=== PATIENT | female | born 1990 | race Caucasian/White ===

== ENCOUNTER 2021-03-29 11:50 | Emergency (ER) | payer OTHER ==
[~2021-03-29] VITALS: Ht 170.2 cm; Wt 127.0 kg
[~2021-03-29 11:50] MED LIST: CEFD300 PO; IBUP800 PO; PROACE100 PO; RXPROACE PO
== END 2021-03-29 12:34 | disposition home or self-care (01) ==
LOC: ER 11:50
DX: S62.522A Displaced fracture of distal phalanx of left thumb, initial encounter for closed fracture (principal); W23.0XXA Caught, crushed, jammed, or pinched between moving objects, initial encounter; Z88.1 Allergy status to other antibiotic agents
CPT/HCPCS: 99283

== ENCOUNTER → 2021-10-15 | Outpatient (CLI) | payer OTHER ==
[2021-10-16 15:10] LABS: HPV 16 Negative (Negative); HPV 18 Negative (Negative); HPV OTHER HR TYPES Negative (Negative)
== END | disposition home or self-care (01) ==
LOC: LAB 14:19 → LAB SHORT 14:19
PROVIDERS: Family Medicine
DX: Z12.4 Encounter for screening for malignant neoplasm of cervix (principal)
CPT/HCPCS: 87624; G0123

== ENCOUNTER → 2023-11-17 | Outpatient (CLI) | payer OTHER ==
[~2023-11-17] MED LIST changes: +PRENATAL TABLE1 EAC2 PO
[2023-11-17 11:42] LABS: BASOPHILS ABSOLUTE AUTO 0.05 K/mm3 (0.00-0.23); BASOPHILS PERCENT AUTO 1 % (0-2); EOSINOPHILS ABSOLUTE AUTO 0.08 K/mm3 (0.00-0.68); EOSINOPHILS PERCENT AUTO 2 % (0-6); Hematocrit 34.4 % (33.0-51.0); Hemoglobin 10.7 g/dL (11.5-16.0); IMMATURE GRAN ABSOLUTE AUTO 0.01 K/mm3 (0.00-0.10); IMMATURE GRAN PERCENT AUTO 0 % (0-1); LYMPHOCYTES PERCENT AUTO 29 % (21-46); MONOCYTES ABSOLUTE AUTO 0.42 K/mm3 (0.16-1.47); MONOCYTES PERCENT AUTO 9 % (4-13); Mean Corpuscular HGB 24.5 pg (26.0-34.0); Mean Corpuscular HGB Conc 31.1 g/dL (31.5-36.5); Mean Corpuscular Volume 79 fL (80-100); Mean Platelet Volume 10.1 fL (9.1-12.4); NEUTROPHILS ABSOLUTE AUTO 2.92 K/mm3 (1.96-9.15); NEUTROPHILS PERCENT AUTO 60 % (41-73); Platelet Count 237 K/mm3 (150-400); RDW Coefficient Variation 16.6 % (11.7-14.2); RDW Standard Deviation 45.8 fL (35.1-46.3); Red Blood Cell Count 4.36 M/mm3 (3.80-5.20); White Blood Cell Count 4.88 K/mm3 (4.00-11.30)
== END ==
LOC: LAB SHORT 11:38 → LAB 11:38
PROVIDERS: Physician Assistant Medical
DX: Z34.91 Encounter for supervision of normal pregnancy, unspecified, first trimester (principal)
CPT/HCPCS: 84702; 85025

== ENCOUNTER 2024-01-01 15:59 | Emergency (ER) | payer OTHER ==
[~2024-01-01] VITALS: Ht 172.7 cm; Wt 113.4 kg
[2024-01-01] MEDS ORDERED: Ibuprofen 400 MG Tab PO ONE (17:05)
[2024-01-01 18:37] VITALS: BP 123/77
== END 2024-01-01 18:38 | disposition home or self-care (01) ==
LOC: ER 15:59
DX: S33.5XXA Sprain of ligaments of lumbar spine, initial encounter (principal); S80.01XA Contusion of right knee, initial encounter; S50.812A Abrasion of left forearm, initial encounter; S20.412A Abrasion of left back wall of thorax, initial encounter; W17.89XA Other fall from one level to another, initial encounter; Z79.899 Other long term (current) drug therapy; Z88.1 Allergy status to other antibiotic agents
CPT/HCPCS: 72100; 73562-RT; 99284-25; A9270

== ENCOUNTER → 2025-01-22 | Outpatient (CLI) | payer OTHER | LOC: LAB 15:29 → LAB SHORT 15:29 | DX: Z34.91 Encounter for supervision of normal pregnancy, unspecified, first trimester (principal) | CPT/HCPCS: 84702 ==